=== PATIENT | female | born 1975 | race Asian ===

== ENCOUNTER 2022-03-13 01:57 | Emergency (ER) | payer MEDICAID, OTHER ==
[~2022-03-13] VITALS: Ht 152.4 cm; Wt 45.4 kg
[2022-03-13] MEDS ORDERED: LEVO-28 PO (02:18)
[2022-03-13] MEDS ORDERED: cefTRIAXone W LIDOCAINE 1 GM IM IM ONE (04:45)
[2022-03-13] MEDS ORDERED: cefTRIAXone SOD 1,000 MG VL ONE (04:48)
[2022-03-13 05:00] VITALS: BP 99/67
[2022-03-13] MEDS ORDERED: cefTRIAXone SOD 1,000 MG VL IM ONE (05:00)
== END 2022-03-13 05:00 | disposition home or self-care (01) ==
LOC: ER 01:57
DX: J06.9 Acute upper respiratory infection, unspecified (principal); E11.9 Type 2 diabetes mellitus without complications; Z20.822 Contact with and (suspected) exposure to COVID-19
CPT/HCPCS: 36415; 71045; 87426; 96372; 99284; J0696

== ENCOUNTER 2022-06-05 16:34 | Emergency (ER) | payer MEDICAID ==
[~2022-06-05] VITALS: Ht 152.4 cm; Wt 48.1 kg
[~2022-06-05 16:34] MED LIST: LEVO-28 PO
[2022-06-05 16:45] VITALS: BP 107/75
[2022-06-05 19:30] LABS: Basophils # (auto) 0 10 ^3/uL (0-0.2); Basophils % (auto) 0.6 % (0.0-2.0); Eosinophils # (auto) 0.2 10 ^3/uL (0-0.8); Eosinophils % (auto) 3.3 % (0.0-7.0); Hematocrit 39.3 % (36.0-46.0); Hemoglobin 12.8 g/dL (12.2-16.2); Lymphocytes # (auto) 2.5 10 ^3/uL (0.4-5.4); Lymphocytes % (auto) 34.1 % (10.0-50.0); Mean Corpuscular Hemoglobin 26.1 pg (28.0-32.0); Mean Corpuscular Hgb Conc. 32.6 g/dL (32.0-36.0); Mean Corpuscular Volume 80.1 fL (80.0-100.0); Monocytes # (auto) 0.6 10 ^3/uL (0-1.3); Monocytes % (auto) 7.9 % (0.0-12.0); Neutrophils % (auto) 54.1 % (37.0-80.0); Red Blood Cells 4.91 10^6/uL (4.0-5.20); Red Cell Distribution Width 14.7 % (11.8-14.3); White Blood Cell 7.4 10^3/uL (4.4-10.8)
[2022-06-05 19:56] LABS: Albumin 3.5 g/dL (3.4-5.0); Calcium 8.9 mg/dL (8.5-10.1); Potassium 4.5 mmol/L (3.5-5.1)
[2022-06-05 19:59] LABS: BUN/Creatinine Ratio 22.1; Bilirubin, Total 0.3 mg/dL (0.2-1.0); Total Protein 8.4 g/dL (6.4-8.2)
[2022-06-05] MEDS ORDERED: HYDROcodone-ACET 5/325MG TAB PO ONE (22:30)
[2022-06-05] MEDS ORDERED: cefTRIAXone SOD 1,000 MG VL IM ONE (22:30)
[2022-06-05] MEDS ORDERED: AZITTAB PO (22:33)
== END 2022-06-06 02:52 | disposition home or self-care (01) ==
LOC: ER 16:34
DX: M25.511 Pain in right shoulder (principal); J18.9 Pneumonia, unspecified organism; Z79.2 Long term (current) use of antibiotics
CPT/HCPCS: 36415; 71045; 80053; 84484; 85025; 93005

== ENCOUNTER 2023-05-31 23:03 | Emergency (ER) | payer MEDICAID ==
[~2023-05-31] VITALS: Ht 152.4 cm; Wt 45.1 kg
[~2023-05-31 23:03] MED LIST changes: +AZITTAB PO; -LEVO-28 PO; +LEVO500T91 PO
[2023-05-31 23:48] VITALS: BP 115/74; PULSE 89; RESP 20; O2SAT 98
[2023-06-01 01:02] LABS: Basophils # (auto) 0 10 ^3/uL (0-0.2); Basophils % (auto) 0.3 % (0.0-2.0); Eosinophils # (auto) 0 10 ^3/uL (0-0.8); Eosinophils % (auto) 0.4 % (0.0-7.0); Hematocrit 44.3 % (36.0-46.0); Hemoglobin 14.9 g/dL (12.2-16.2); Lymphocytes # (auto) 1.5 10 ^3/uL (0.4-5.4); Lymphocytes % (auto) 17.1 % (10.0-50.0); Mean Corpuscular Hemoglobin 28.1 pg (28.0-32.0); Mean Corpuscular Hgb Conc. 33.5 g/dL (32.0-36.0); Monocytes # (auto) 0.7 10 ^3/uL (0-1.3); Monocytes % (auto) 8.5 % (0.0-12.0); Neutrophils # (auto) 6.3 10 ^3/uL (1.6-8.6); Neutrophils % (auto) 73.7 % (37.0-80.0); Nucleated Red Blood Cells % 0.1 %; Red Blood Cells 5.28 10^6/uL (4.0-5.20); Red Cell Distribution Width 12.4 % (11.8-14.3); White Blood Cell 8.6 10^3/uL (4.4-10.8)
[2023-06-01 01:05] LABS: Albumin 4.2 g/dL (3.2-4.8); Alkaline Phosphatase 77 U/L (46-116); Anion Gap 4.7 (5-15); Aspartate Aminotransferase 12 U/L (13-40); BUN/Creatinine Ratio 13.8 (10.0-20.0); Blood Urea Nitrogen 11 mg/dL (9-23); Calcium 8.8 mg/dL (8.7-10.4); Carbon Dioxide 28.3 mmol/L (20-30); Chloride 100 mmol/L (98-107); Glucose 222 mg/dL (74-106); Lipase 43 U/L (12-53); Potassium 3.9 mmol/L (3.5-5.1); Sodium 133 mmol/L (136-145)
[2023-06-01 01:06] LABS: Bilirubin, Total 0.5 mg/dL (0.2-1.0); Total Protein 7.1 g/dL (5.7-8.2)
[2023-06-01 01:09] LABS: Alanine Aminotransferase < 9 U/L (7-40)
[2023-06-01 01:37] LABS: Urine Bacteria FEW /hpf (None Seen); Urine Blood Negative /uL (Negative); Urine Clarity HAZY (Clear); Urine Color Yellow (Yellow); Urine Mucus FEW (None Seen); Urine Protein, UAD 1+ (Negative); Urine Specific Gravity 1.032 (1.001-1.035); Urine WBC 76 /hpf (0 - 5)
[2023-06-01] MEDS ORDERED: METR-344 PO (05:40)
[2023-06-01] MEDS ORDERED: CIPR-173 PO (05:40)
[2023-06-01] MEDS ORDERED: metroNIDAZOLE 500 MG TAB PO ONE (05:45)
[2023-06-01] MEDS ORDERED: ONDANSETRON ODT 4 MG TAB PO ONE (05:45)
[2023-06-01] MEDS ORDERED: HYDROcodone-ACET 10/325MG TAB PO ONE (05:45)
[2023-06-01] MEDS ORDERED: CIPROFLOXACIN HCL 500 MG TAB PO ONE (05:45)
== END 2023-06-01 06:43 | disposition left against medical advice (07) ==
LOC: ER 23:03
DX: N39.0 Urinary tract infection, site not specified (principal); K52.9 Noninfective gastroenteritis and colitis, unspecified; E11.65 Type 2 diabetes mellitus with hyperglycemia; Z98.890 Other specified postprocedural states; Z79.899 Other long term (current) drug therapy
CPT/HCPCS: 36415; 74176; 80053; 81001; 81025; 82962; 83690; 85025